=== PATIENT | male | born 1995 | race Asian ===

== ENCOUNTER 2017-08-03 01:28 | Emergency (ER) | payer BC ==
[2017-08-03] MEDS ORDERED: NS 0.9% 1000 ML* 2,000 ML IV ONE (01:32)
[2017-08-03] MEDS ORDERED: diPHENhydraMINE IV* 50 MG/ML 1 ml VIAL (BENADRYL) SLOW PUSH PRN (01:34)
[2017-08-03] MEDS ORDERED: Metoclopramide IV* 5 MG/ML 2 ML VIAL IV SLOW PU ONE ×2 (01:34→02:05)
[2017-08-03 02:54] LABS: ABS Basophils 0 10^3/ul (0-0.2); ABS Eosinophils 0 10^3/ul (0-0.6); ABS Lymphocytes 1.8 10^3/ul (1.0-4.8); ABS Monocytes 0.6 10^3/ul (0-0.8); ABS Neutrophils 7.1 10^3/ul (1.5-7.7); ABS Nucleated RBC 0 10^3/ul; Eosinophil % 0.2 % (0-6); Hematocrit 42 % (42-52); Hemoglobin 14.3 g/dl (14.0-18.0); Lymphocyte % 18.4 % (25-47); Mean Corpuscular HGB Conc 34 g/dl (31-36); Mean Corpuscular Hemoglobin 30 pg (27-31); Mean Corpuscular Volume 89 fL (80-94); Mean Platelet Volume 7 um3 (7.4-10.4); Nucleated Red Blood Cells % 0; Platelet Count 319 10^3/ul (150-450); Red Blood Count 4.69 10^6/ul (4.0-5.4); Red Cell Distribution Width 12 % (10.5-15); White Blood Count 9.5 10^3/ul (3.5-10.8)
[2017-08-03 03:09] LABS: EGFR Non-African American 95.3 (>60)
--- NOTE | 2017-08-03 05:53 | ED ---
Chris Montiel Nikita, scribed for Hood Mora MD on 08/03/17 at 0211 . Substance Abuse/Use - HPI Summary HPI Summary: This patient is a 22 year old M BIBA to [facility] with a chief complaint of EtOH intoxication since earlier today. Symptoms aggravated and alleviated by nothing. Patient reports vomiting. Patient admits to drinking four beers and three vodkas. Patient is aware of his surroundings. - History Of Current Complaint Chief Complaint: EDSubstanceAbuse Stated Complaint: ETOH Time Seen by Provider: 08/03/17 01:31 Hx Obtained From: Patient Onset/Duration of Drug/ETOH Abuse: Hours Aggravating Factor(s): Nothing Alleviating Factor(s): Nothing Associated Signs And Symptoms: Vomiting - Allergies/Home Medications Allergies/Adverse Reactions: Allergies Allergy/AdvReac Type Severity Reaction Status Date / Time No Known Allergies Allergy Verified 06/06/15 22:32 PMH/Surg Hx/FS Hx/Imm Hx Endocrine/Hematology History: Denies: Hx Diabetes Cardiovascular History: Denies: Hx Hypertension Infectious Disease History: No Infectious Disease History: Reports: Traveled Outside the in Last 30 Days - [place] - Family History Known Family History: Negative: Hypertension, Diabetes - Social History Alcohol Use: Occasionally Hx Substance Use: No Substance Use Type: Reports: None Hx Tobacco Use: No Smoking Status (MU): Never Smoked Tobacco Review of Systems Negative: Fever Positive: Vomiting All Other Systems Reviewed And Are Negative: Yes Physical Exam - Summary Physical Exam Summary: VITAL SIGNS: Reviewed. GENERAL: ~Patient is a well-developed and nourished male who is lying comfortable in the stretcher. Patient is not in any acute respiratory distress. HEAD AND FACE: No signs of trauma. No ecchymosis, hematomas or skull depressions. No sinus tenderness. EYES: PERRLA, EOMI x 2, No injected conjunctiva, no nystagmus. EARS: Hearing grossly intact. Ear canals and tympanic membranes are within normal limits. MOUTH: Oropharynx within normal limits. NECK: Supple, trachea is midline, no adenopathy, no JVD, no carotid bruit, no c- spine tenderness, neck with full ROM. CHEST: Symmetric, no tenderness at palpation LUNGS: Clear to auscultation bilaterally. No wheezing or crackles. CVS: Regular rate and rhythm, S1 and S2 present, no murmurs or gallops appreciated. ABDOMEN: Soft, non-tender. No signs of distention. No rebound no guarding, and no masses palpated. Bowel sounds are normal. Vomiting. EXTREMITIES: FROM in all major joints, no edema, no cyanosis or clubbing. NEURO: Alert and oriented x 3. No acute neurological deficits. Speech is normal and follows commands. SKIN: Dry and warm Triage Information Reviewed: Yes Vital Signs On Initial Exam: Initial Vitals Temp Pulse Resp BP Pulse Ox 97.6 F 88 16 137/107 99 08/03/17 01:31 08/03/17 01:31 08/03/17 01:31 08/03/17 01:31 08/03/17 01:31 Vital Signs Reviewed: Yes Diagnostics - Vital Signs Vital Signs Temp Pulse Resp BP Pulse Ox 08/03/17 01:31 97.6 F 88 16 137/107 99 - Laboratory Result Diagrams: 08/03/17 02:44 08/03/17 02:44 Lab Statement: Any lab studies that have been ordered have been reviewed, and results considered in the medical decision making process. Re-Evaluation - Re-Evaluation First Eval Re-Evaluation Time: 05:35 Change: Improved - Patient is alert and awake and ready for discharge. Course/Dx - Course Assessment/Plan: This patient is a 22 year old M BIBA to [facility] with a chief complaint of EtOH intoxication since earlier today. In the ED course, patient was given Benadryl in an IV. Patient will be discharged home and is agreeable with the plan. - Diagnoses Differential Diagnosis/HQI/PQRI: Positive: Other - Alcohol intoxication Provider Diagnoses: Alcohol intoxication Discharge - Discharge Plan Condition: Stable Disposition: HOME Patient Education Materials: Alcohol Intoxication (ED) Referrals: [facility] - Jasmeet OLIVEIRA [Primary Care Provider] - (Follow up with PCP in 1- 2 days. ) Additional Instructions: RETURN TO THE EMERGENCY DEPARTMENT FOR CHANGING OR WORSENING SYMPTOMS. Follow up with PCP in 1-2 days. The documentation as recorded by the Chris payne Nikita accurately reflects the service I personally performed and the decisions made by , Hood Mora MD.
[2017-08-03 06:36] VITALS: BP 115/41
== END 2017-08-03 06:34 | disposition home or self-care (01) ==
LOC: ED 01:28
DX: F10.129 Alcohol abuse with intoxication, unspecified (principal)
CPT/HCPCS: 36415; 80053; 80320; 85025; 96361; 96374; 99284; G0480; J2765